=== PATIENT | male | born 1980 | race Caucasian/White ===

== ENCOUNTER 2024-03-01 06:14 | Day surgery (SDC) | payer OTHER ==
[~2024-03-01] VITALS: Ht 182.9 cm; Wt 131.5 kg
[~2024-03-01 06:14] MED LIST: ALLO300T2 PO; AMLO1TAB23 PO; CHLO25TA2 PO; CLON0.2T PO; HYDR-5052 PO; LEVO112T4 PO; LISI20TA56 PO; MAGN241.4 PO; SIMV20TA20 PO
[2024-03-01] MEDS ORDERED: VANCOMYCIN HCL 1000 MG VL ONE (06:28)
[2024-03-01] MEDS ORDERED: BUPIVACAINE 0.5% P/F INJ 10 ML VIAL ONE (06:43)
[2024-03-01] MEDS ORDERED: BUPIVACAINE 0.25% INJ 50ML VIAL ONE (06:43)
[2024-03-01] MEDS ORDERED: DexAMETHasone SOD PHOS 4 MG/1ML SDV INJ ONE (06:43)
[2024-03-01] MEDS ORDERED: EPINEPHrine HCL 1 MG/1 ML AMP ONE ×3 (06:43→07:13)
[2024-03-01] MEDS ORDERED: LIDOCAINE HCL 2% TOP JELLY 5ML TOP ONE (06:51)
[2024-03-01] MEDS ORDERED: ONDANSETRON HCL 4 MG/2 ML VIAL ONE (06:55)
[2024-03-01] MEDS ORDERED: LIDOCAINE 2% (LOCAL ANESTH.) PF 5ml SDV ONE (06:55)
[2024-03-01] MEDS ORDERED: LIDOCAINE 1% INJ PF 5ML AMP ONE (06:56)
[2024-03-01] MEDS ORDERED: GLYCOPYRROLATE 0.2 MG/ML 1ML VIAL ONE (06:56)
[2024-03-01] MEDS ORDERED: KETOROLAC TROMETH 30 MG/ML 1ML VIAL ONE (06:56)
[2024-03-01] MEDS ORDERED: PROPOFOL 10 MG/ML 20 ML IV ONE (06:56)
[2024-03-01] MEDS ORDERED: DexAMETHasone SOD PHOS 10MG/1ML VIAL INJ ONE (06:56)
[2024-03-01] MEDS ORDERED: ROCURONIUM 10MG/ML 10ML VIAL IV ONE (06:56)
[2024-03-01] MEDS ORDERED: fentaNYL CITRATE 100 MCG/2 ML VL ONE (07:01)
[2024-03-01] MEDS ORDERED: KETAMINE 50mg/ML 1ml syringe ONE (07:01)
[2024-03-01] MEDS ORDERED: ceFAZolin 2 GM/D5W50ml 50 ML IV ONE (07:16)
[2024-03-01] MEDS ORDERED: MIDAZOLAM HCL 2MG/2ML 2ml VIAL (1mg/ml) ONE (07:22)
[2024-03-01] MEDS: GABAPENTIN 400 MG CAP PO ONE (07:25)
[2024-03-01] MEDS: ACETAMINOPHEN IV 1000 MG/100ML (10MG/ML) IV ONE (07:25)
[2024-03-01] MEDS: CELECOXIB 100 MG CAP PO ONE (07:25)
[2024-03-01] MEDS ORDERED: ROPIVACAINE 0.5% (5MG/ML) 20ML AMPULE IJ ONE (07:28)
[2024-03-01] MEDS ORDERED: SUGAMMADEX 200mg/2ml Vial (100MG/ML) IV ONE (07:39)
[2024-03-01] MEDS ORDERED: ceFAZolin 1GM VL ONE (07:39)
[2024-03-01] MEDS ORDERED: ESMOLOL HCL 10 ML IV ONE (07:55)
[2024-03-01] MEDS ORDERED: SODIUM CHLORIDE LOCK 10 ML ONE (08:08)
[2024-03-01] MEDS ORDERED: PHENYLEPHRINE HCL 10 MG/ML VL ONE (08:08)
[2024-03-01 09:03] VITALS: PULSE 83; RESP 20; O2SAT 94
[2024-03-01] MEDS ORDERED: NALOXONE HCL 0.4 MG/ML VIAL IV PRN (09:15)
[2024-03-01] MEDS ORDERED: fentaNYL CITRATE 100 MCG/2 ML VL IV PRN (09:15)
[2024-03-01] MEDS ORDERED: ONDANSETRON HCL 4 MG/2 ML VIAL IV PRN (09:15)
[2024-03-01] MEDS ORDERED: oxyCODONE HCL 5MG TAB PO PRN (09:15)
[2024-03-01] MEDS ORDERED: HYDROmorphone HCL 2 MG/ML VL/or syr IV PRN (09:15)
[2024-03-01] MEDS ORDERED: hydrALAZINE HCL 20 MG/ML VL IV PRN (09:15)
[2024-03-01] MEDS ORDERED: FLUMAZENIL 0.1 MG/ML INJ 10ML MDV IV PRN (09:15)
[2024-03-01] MEDS ORDERED: ePHEDrine SULFATE 50 MG/ML AMP IV PRN (09:15)
[2024-03-01 10:48] VITALS: BP 110/71; PULSE 79; RESP 18; O2SAT 94
== END 2024-03-01 11:13 | disposition home or self-care (01) ==
LOC: SUR 06:14
PROVIDERS: ATTEND Orthopaedic Surgery
DX: M75.101 Unspecified rotator cuff tear or rupture of right shoulder, not specified as traumatic (principal); M75.21 Bicipital tendinitis, right shoulder; M75.41 Impingement syndrome of right shoulder; M25.811 Other specified joint disorders, right shoulder; S43.431A Superior glenoid labrum lesion of right shoulder, initial encounter; X58.XXXA Exposure to other specified factors, initial encounter; Y93.89 Activity, other specified; Y92.89 Other specified places as the place of occurrence of the external cause; Y99.8 Other external cause status; I12.9 Hypertensive chronic kidney disease with stage 1 through stage 4 chronic kidney disease, or unspecified chronic kidney disease; N18.30 Chronic kidney disease, stage 3 unspecified; E03.9 Hypothyroidism, unspecified; K21.9 Gastro-esophageal reflux disease without esophagitis; G47.33 Obstructive sleep apnea (adult) (pediatric); F43.10 Post-traumatic stress disorder, unspecified; E66.01 Morbid (severe) obesity due to excess calories; Z68.39 Body mass index [BMI] 39.0-39.9, adult; Z79.899 Other long term (current) drug therapy; Z90.89 Acquired absence of other organs; Z98.890 Other specified postprocedural states; Z87.891 Personal history of nicotine dependence; Z88.0 Allergy status to penicillin; Z88.8 Allergy status to other drugs, medicaments and biological substances
CPT/HCPCS: 29828; 64415; C1713; J0171; J0690; J1100; J1885; J2001; J2250; J2371; J2405; J2704; J2795; J3370; J3490; A4565; J0131